=== PATIENT | female | born 1990 | race African-American/Black ===

== ENCOUNTER 2018-03-24 07:19 | Emergency (ER) | payer OTHER ==
[2018-03-24] MEDS ORDERED: TETRACAINE HCL 0.5% OPH SOLN 2 ML OU ONE (07:28)
--- NOTE | 2018-03-24 07:30 | ER Document Report ---
ED General - General Chief Complaint: Vision Problem Stated Complaint: BLURRY VISION Time Seen by Provider: 03/24/18 07:28 Mode of Arrival: Ambulatory TRAVEL OUTSIDE OF THE [place] IN LAST 30 DAYS: No - HPI Notes: 27-year-old female presents today with complaints of bilateral eye irritation and itching that started today. Denies any blurred vision, double vision loss of vision. Allergies, does take a Prema daily. noticed some exudates in her eyes. Denies any pain. Denies any photophobia or phonophobia. Patient does wear contacts and glasses. 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 Denies fevers, chills, chest pain,palpitations, shortness of breath, dyspnea, nausea , vomiting, diarrhea, abdominal pain, hematuria,blurred vision, double vision, loss of vision, speech changes, LH, dizziness, syncope, headaches, wheezing, ST , URI, neck pain, weakness, bowel or bladder dysfunction, saddle anesthesia, numbness or tingling in bilateral upper or lower extremities equally, muscle paralysis, weakness in bilateral upper or lower extremities equally or rash. Denies IV drug use. Patient was not wearing her glasses when she did her visual acuity which was 200/20 equally bilaterally - Related Data Allergies/Adverse Reactions: No Known Drug Allergies Allergy (Verified 03/24/18 07:54) Past Medical History - General Information source: Patient - Social History Smoking Status: Never Smoker Family History: Reviewed & Not Pertinent Pulmonary Medical History: Reports: Hx Asthma Denies: Hx Tuberculosis Renal/ Medical History: Denies: Hx End Stage Renal Disease, Hx Kidney Stones, Hx Peritoneal Dialysis Psychiatric Medical History: Reports: Hx Depression Past Surgical History: Denies: Hx Appendectomy, Hx Bowel Surgery, Hx Section, Hx Cholecystectomy, Hx Coronary Artery Bypass Graft, Hx Gastric Bypass Surgery, Hx Herniorrhaphy, Hx Hysterectomy, Hx Mastectomy, Hx Pacemaker, Hx Tonsillectomy, Hx Tubal Ligation - Immunizations Hx Diphtheria, Pertussis, Tetanus Vaccination: Yes Review of Systems - Review of Systems Constitutional: No symptoms reported EENT: See HPI Cardiovascular: No symptoms reported Respiratory: No symptoms reported Gastrointestinal: No symptoms reported Genitourinary: No symptoms reported Female Genitourinary: No symptoms reported Musculoskeletal: No symptoms reported Skin: No symptoms reported Hematologic/Lymphatic: No symptoms reported Neurological/Psychological: No symptoms reported Physical Exam - Vital signs Vitals: Temp Pulse Resp BP Pulse Ox 97.8 F 74 18 130/82 H 100 03/24/18 07:24 03/24/18 07:24 03/24/18 07:24 03/24/18 07:24 03/24/18 07:24 - Notes Notes: PHYSICAL EXAMINATION: GENERAL: Well-appearing, well-nourished and in no acute distress. HEAD: Atraumatic, normocephalic. EYES: Pupils equal round and reactive to light, extraocular movements intact, conjunctiva are normal. Fluostain wnl. PERRLA, normal accommodation, EMOI, peripheral vision bilaterally and equally. no exudates noted. red reflex wnl. fluostain negative for corneal abrasion, foreign body, dendrites, or ulcer. Normal fundi and optic discs. Corneas grossly clear. No nystagmus bilaterally. No ptosis, photophobia. visual acuity _/_. ENT: Nares patent, oropharynx clear without exudates. Moist mucous membranes. NECK: Normal range of motion, supple without lymphadenopathy LUNGS: Breath sounds clear to auscultation bilaterally and equal. No wheezes rales or rhonchi. HEART: Regular rate and rhythm without murmurs ABDOMEN: Soft, nontender, nondistended abdomen. No guarding, no rebound. No masses appreciated. Female : deferred Musculoskeletal: Normal range of motion, no pitting or edema. No cyanosis. NEUROLOGICAL: Cranial nerves grossly intact. Normal speech, normal gait. Normal sensory, motor exams PSYCH: Normal mood, normal affect. SKIN: Warm, Dry, normal turgor, no rashes or lesions noted. Course - Re-evaluation Re-evalutation: 03/24/18 08:12 Patient is afebrile vitals stable. Patient is not having any discomfort. At this time will discharge with return precautions and follow-up recommendations. warm compress to eyes 20 minutes on 20 minutes off several times a day. Follow-up with ophthalmology within 1-2 days. Take antibiotic drops as directed. Verbal discharge instructions given a the bedside and opportunity for questions given. Medication warnings reviewed. Patient is in agreement with this plan and has verbalized understanding of return precautions and the need for primary care follow-up in the next 24-72 hours. Return to emergency room if symptoms become worse. After performing a Medical Screening Examination, I estimate there is LOW risk for a RETAINED CORNEAL or LID FOREIGN BODY, DEEP SPACE INFECTION (e.g., ORBITAL CELLULITIS OR ABSCESS), ACUTE GLAUCOMA, PENETRATING GLOBE INJURY, RETINAL DETACHMENT, or MENINGITIS thus I consider the discharge disposition reasonable. I have reevaluated this patient multiple times and no significant life threatening changes are noted. Also, there is no evidence or peritonitis, sepsis , or toxicity. The patient and I have discussed the diagnosis and risks, and we agree with discharging home with outpatient follow-up with the understanding that symptoms and presentations can change. We also discussed returning to the Emergency Department immediately if new or worsening symptoms occur. We have discussed the symptoms which are most concerning (e.g., changing or worsening pain, vision changes, neck stiffness or fever) that necessitate immediate return. 03/24/18 09:30 - Vital Signs Vital signs: Temp Pulse Resp BP Pulse Ox 98.0 F 80 18 128/70 H 100 03/24/18 08:32 03/24/18 08:32 03/24/18 08:32 03/24/18 08:32 03/24/18 08:32 Discharge - Discharge Clinical Impression: Acute bacterial conjunctivitis of both eyes Condition: Good Disposition: HOME, SELF-CARE Instructions: Antibiotic Therapy ([facility]), Conjunctivitis ([facility]) Additional Instructions: Conjunctivitis You have an infection in your eye, commonly known as "pink eye." Conjunctivitis causes redness, mild discomfort, itching, and mattering on the eyelids. It is very contagious, so you must be careful to wash your hands after touching your face so you don't pass the infection on to others. Conjunctivitis is caused by both viruses and bacteria. It usually responds quickly to treatment with antibiotic drops. These should be placed in the eye as prescribed (usually every three to four hours while you're awake). If you wear contact lenses, don't put them in your eyes until the infection is cleared and you are no longer using the drops (unless your doctor advises you otherwise). Should you develop increasing eye pain, severe swelling, decreased vision, or fail to improve as expected, please return for re-examination. you conjunctivitis is cleared, only with fresh new contacts. Do not wear makeup while treating her infection, wash makeup brushes prior to using after your infection has cleared. Wear glasses. Warm compress to site 20 minutes on 20 minutes off several times a day, use antibiotic drops as directed. take ibuprofen and tylenol as needed for pain. Follow-up with nursing assoc within 1 day, referral given. Return to the emergency room if symptoms become worse. Return immediately for any new or worsening symptoms. Follow up with primary care provider, call tomorrow to make followup appointment. Prescriptions: Polymyxin B Sulfate/Tmp [Polytrim Oph Soln 10 ml] 1 drop OP ASDIR PRN #1 bottle PRN Reason: Forms: Parent Work Note, Return to Work Referrals: JUAN MARTINEZ DO [ACTIVE STAFF] - Follow up tomorrow (prn) VIRGEN ARAGON MD [ACTIVE STAFF] - Follow up as needed
[2018-03-24 08:32] VITALS: BP 128/70
== END 2018-03-24 08:32 | disposition home or self-care (01) ==
LOC: ER 07:19
DX: H10.33 Unspecified acute conjunctivitis, bilateral (principal); B96.89 Other specified bacterial agents as the cause of diseases classified elsewhere; J45.909 Unspecified asthma, uncomplicated
CPT/HCPCS: 99283